=== PATIENT | female | born 1960 | race Caucasian/White ===

== ENCOUNTER → 2016-12-30 | Outpatient (CLI) | payer OTHER ==
[2016-12-30 08:30] LABS: ALANINE AMINOTRANSFERASE 31 U/L (9-52); ALBUMIN 4.2 g/dL (3.5-5.0); ALKALINE PHOSPHATASE 51 U/L (38-126); ASPARTATE AMINO TRANSFERASE 26 U/L (14-36); BILIRUBIN,DIRECT 0.2 mg/dL (0.0-0.4); BILIRUBIN,TOTAL 0.6 mg/dL (0.2-1.3); BLOOD UREA NITROGEN 15 mg/dL (7-20); CALCIUM 9.2 mg/dL (8.4-10.2); CARBON DIOXIDE 26 mmol/L (22-30); CREATININE RESULT 0.77 mg/dL (0.52-1.25); Direct HDL 59 mg/dL (>40); GLUCOSE 87 mg/dL (75-110); POTASSIUM 4.3 mmol/L (3.6-5.0); SODIUM 139.7 mmol/L (137-145); TOTAL PROTEIN 7.2 g/dL (6.3-8.2); TRIGLYCERIDES 145 mg/dL (<150)
[2016-12-30 08:33] LABS: ANION GAP 11 (5-19); CHLORIDE 103 mmol/L (98-107)
[2016-12-30 08:41] LABS: DIRECT LDL 105 mg/dL (<100)
== END ==
LOC: CCC 07:25
DX: E06.9 Thyroiditis, unspecified (principal); I10 Essential (primary) hypertension
CPT/HCPCS: 36415; 80053; 80061; 84443

== ENCOUNTER → 2017-07-18 | Outpatient (CLI) | payer OTHER ==
[2017-07-18 10:55] LABS: ABSOLUTE EOSINOPHILS # (AUTO) 0.2 10^3/uL (0.0-0.6); ABSOLUTE LYMPHOCYTES (AUTO) 1.5 10^3/uL (0.5-4.7); ABSOLUTE MONOCYTES (AUTO) 0.5 10^3/uL (0.1-1.4); ABSOLUTE NEUT (AUTO) 4.4 10^3/uL (1.7-8.2); BASOPHILS % (AUTO) 0.7 % (0-2); EOSINOPHILS % (AUTO) 3.4 % (0-6); HEMATOCRIT 38.8 % (36.0-47.0); HEMOGLOBIN 13.1 g/dL (12.0-15.5); LYMPHOCYTES % (AUTO) 22.5 % (13-45); MEAN CORPUSCULAR HEMOGLOBIN 30.8 pg (27.0-33.4); MEAN CORPUSCULAR HGB CONC 33.7 g/dL (32.0-36.0); MEAN CORPUSCULAR VOLUME 92 fl (80-97); MONOCYTES % (AUTO) 7.9 % (3-13); PLATELET COUNT 295 10^3/uL (150-450); RED BLOOD COUNT 4.25 10^6/uL (3.72-5.28); RED CELL DISTRIBUTION WIDTH 13.3 % (11.5-14.0); SEGMENTED NEUTROPHILS % (AUTO) 65.5 % (42-78); TOTAL CELLS COUNTED % (AUTO) 100 %; WHITE BLOOD COUNT 6.7 10^3/uL (4.0-10.5)
[2017-07-18 11:23] LABS: ALANINE AMINOTRANSFERASE 39 U/L (9-52); ALBUMIN 4.4 g/dL (3.5-5.0); ALKALINE PHOSPHATASE 54 U/L (38-126); ANION GAP 8 (5-19); ASPARTATE AMINO TRANSFERASE 26 U/L (14-36); BILIRUBIN,DIRECT 0.1 mg/dL (0.0-0.4); BILIRUBIN,TOTAL 0.6 mg/dL (0.2-1.3); BLOOD UREA NITROGEN 17 mg/dL (7-20); CALCIUM 10.3 mg/dL (8.4-10.2); CARBON DIOXIDE 34 mmol/L (22-30); CHLORIDE 100 mmol/L (98-107); GLUCOSE 101 mg/dL (75-110); MAGNESIUM 1.8 mg/dL (1.6-2.3); POTASSIUM 4.6 mmol/L (3.6-5.0); SODIUM 142.1 mmol/L (137-145); TOTAL PROTEIN 7.2 g/dL (6.3-8.2)
--- NOTE | 2017-07-18 12:10 | RADIOLOGY REPORT (SQ) ---
EXAM DESCRIPTION: CHEST PA/LATERAL COMPLETED DATE/TIME: 07/18/2017 10:54 am REASON FOR STUDY: COUGH COMPARISON: None. EXAM PARAMETERS: NUMBER OF VIEWS: two views TECHNIQUE: Digital Frontal and Lateral radiographic views of the chest acquired. RADIATION DOSE: NA LIMITATIONS: none FINDINGS: LUNGS AND PLEURA: No opacities, masses or pneumothorax. No pleural effusion. MEDIASTINUM AND HILAR STRUCTURES: No masses or contour abnormalities. HEART AND VASCULAR STRUCTURES: Heart normal size. No evidence for failure. BONES: No acute findings. HARDWARE: None in the chest. OTHER: No other significant finding. IMPRESSION: NO SIGNIFICANT RADIOGRAPHIC FINDING IN THE CHEST. TECHNICAL DOCUMENTATION: JOB ID: [id number] [employer]- All Rights Reserved
== END ==
LOC: CCC 10:18
DX: R05 Cough (principal); I10 Essential (primary) hypertension; E03.9 Hypothyroidism, unspecified
CPT/HCPCS: 36415; 71046; 80053; 82607; 82746; 83036; 83735; 84443; 85025

== ENCOUNTER → 2017-08-15 | Outpatient (CLI) | payer OTHER ==
--- NOTE | 2017-08-15 17:46 | RADIOLOGY REPORT (SQ) ---
EXAM DESCRIPTION: MRI HEAD COMBO COMPLETED DATE/TIME: 08/15/2017 4:57 pm REASON FOR STUDY: R25.1 TREMOR, UNSPECIFIED R25.1 TREMOR, UNSPECIFIED COMPARISON: None. TECHNIQUE: Multiplanar imaging includes noncontrasted T1, T2, FLAIR, diffusion with ADC map and post gadolinium contrast T1 sequences. Images stored on PACS. Additional thin section axial and coronal T 2, axial and coronal T1 precontrast and axial and coronal T1 post contrasted images through the poste rior fossa to include the brainstem and cerebellopontine angles. CONTRAST TYPE AND DOSE: 15 mL Multihance. RENAL FUNCTION: GFR > 60. LIMITATIONS: None. FINDINGS: ANATOMY: No developmental anomalies. Normal vascular flow voids. Pituitary fossa normal. CSF SPACES: Normal in size and contour. No hemorrhage. CEREBRUM: Sulci and gyri normal in size and contour. Spotty increased bifrontal and biparietal subco rtical and deep white matter signal on FLAIR imaging, likely spotty chronic small vessel ischemic venkatesh nge or gliosis along perivascular spaces. No evidence of hemorrhage, mass, or extraaxial fluid colle ction. No abnormal enhancement post contrast. POSTERIOR FOSSA: There is decreased cons acuity of the substantia nigra in the brainstem. This can c orrelate with parkinsonism. No acute hemorrhage. No edema, masses, or mass effect. Internal auditory canals, cerebellopontine angles, mastoids normal. No enhancing lesions. No abnormal enhancement post contrast. DIFFUSION IMAGING: Negative for acute or subacute infarction. ORBITS: No masses. Globes normal. PARANASAL SINUSES: No fluid levels. Mucosa normal. OTHER: No other significant finding. IMPRESSION: Decreased cons acuity of the substantia nigra on the axial T2 and FLAIR images through t he brainstem, can correlate with history of parkinsonism. Spotty chronic appearing foci of increased FLAIR/ T2 signal in the hemispheric white matter, likely m inimal small vessel ischemic change or minimal gliosis along perivascular spaces. No abnormal brain parenchymal masses or enhancement. Internal auditory canals/ inner ear structures are unremarkable. EVIDENCE OF ACUTE STROKE: NO. TECHNICAL DOCUMENTATION: JOB ID: [id number]- All Rights Reserved Reading location - IP/workstation name: [email or web address]
== END ==
LOC: RAD 15:47
DX: R25.1 Tremor, unspecified (principal)
CPT/HCPCS: 70553; A9576

== ENCOUNTER → 2017-09-07 | Outpatient (CLI) | payer OTHER ==
[~2017-09-07] MED LIST: ALBUTEROL SULFATE 0.083% NEB 2.5 MG/3 ML AMPUL NEB ONE
--- NOTE | 2017-09-11 09:38 | PULMONARY FUNCTION TEST ---
DATE OF SERVICE: 09/07/2017 THE VITAL CAPACITY IS SLIGHTLY DECREASED. THE EXPIRATORY FLOW RATES ARE MODERATELY DECREASED. THE FEV1/VC IS 70%, PREDICTED: 84% AFTER BRONCHODILATOR, EXPIRATORY FLOW RATES SHOW NO SIGNIFICANT CHANGE. IMPRESSION: GOOD PATIENT EFFORT. MODERATE OBSTRUCTIVE DEFECT. CC: DHARMESH ARCE MD > HILARIA
== END ==
LOC: RT 10:12
PROVIDERS: ATTEND Internal Medicine
DX: R05 Cough (principal)
CPT/HCPCS: 94060

== ENCOUNTER → 2017-09-12 | Outpatient (CLI) | payer OTHER ==
--- NOTE | 2017-09-12 10:20 | RADIOLOGY REPORT (SQ) ---
EXAM DESCRIPTION: COOKIE SWALLOW COMPLETED DATE/TIME: 09/12/2017 9:38 am REASON FOR STUDY: DYSPHAGIA (R13.10) food in the a pharynx causing injury, sequela T17.228S R13.10 DYSPHAGIA, UNSPECIFIED COMPARISON: None. TECHNIQUE: Videofluoroscopic swallowing examination was performed in conjunction with speech patholo gy. Videofluoroscopic imaging was obtained and reviewed and these are the findings: RADIATION DOSE: Total fluoroscopy time: 1 minutes 4 seconds 1 fluoroscopy image saved to PACS. LIMITATIONS: None FINDINGS: The patient was brought into the fluoro room and placed upright on a modified barium swall ow chair. The patient was then given multiple consistencies mixed with barium to swallow under live fluoroscopic video guidance. According to the Speech Pathologist there was no laryngeal penetration or tracheal aspiration. Normal oral and pharyngeal transit time was observed. No significant post s wallow residual was seen. Please see speech pathology report for further details and recommendations . IMPRESSION: NO EVIDENCE OF LARYNGEAL PENETRATION OR TRACHEAL ASPIRATION.PLEASE SEE SPEECH PATHOLOGIS T REPORT FOR OTHER FINDINGS AND RECOMMENDATIONS. COMMENT: Quality ID [id number]: Final reports for procedures using fluoroscopy that document radiation exp osure indices, or exposure time and number of fluorographic images (if radiation exposure indices are not available) TECHNICAL DOCUMENTATION: JOB ID: [id number] [employer]- All Rights Reserved Reading location - IP/workstation name: [email or web address]
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
== END ==
LOC: RAD 07:57
DX: R13.10 Dysphagia, unspecified (principal)
CPT/HCPCS: 74230; 92611; G8996; G8997; G8998

== ENCOUNTER 2017-09-24 20:13 | Emergency (ER) | payer OTHER ==
[2017-09-24] MEDS ORDERED: ACETAMINOPHEN 325 MG TABLET PO ONE (21:06)
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
[2017-09-24] MEDS ORDERED: CYCLOBENZAPRINE HCL 10 MG TABLET PO ONE (22:14)
== END 2017-09-24 22:37 | disposition home or self-care (01) ==
LOC: ER 20:13
DX: M54.2 Cervicalgia (principal); V49.50XA Passenger injured in collision with unspecified motor vehicles in traffic accident, initial encounter
CPT/HCPCS: 72050; 99284

== ENCOUNTER → 2017-12-25 | Outpatient (CLI) | payer OTHER ==
[2017-12-25 08:52] LABS: ABSOLUTE BASOPHILS # (AUTO) 0.1 10^3/uL (0.0-0.2); ABSOLUTE EOSINOPHILS # (AUTO) 0.2 10^3/uL (0.0-0.6); ABSOLUTE LYMPHOCYTES (AUTO) 1.9 10^3/uL (0.5-4.7); ABSOLUTE MONOCYTES (AUTO) 0.4 10^3/uL (0.1-1.4); ABSOLUTE NEUT (AUTO) 3.1 10^3/uL (1.7-8.2); BASOPHILS % (AUTO) 0.9 % (0-2); HEMATOCRIT 39.7 % (36.0-47.0); HEMOGLOBIN 13.5 g/dL (12.0-15.5); LYMPHOCYTES % (AUTO) 33.6 % (13-45); MEAN CORPUSCULAR HEMOGLOBIN 31.1 pg (27.0-33.4); MEAN CORPUSCULAR HGB CONC 33.9 g/dL (32.0-36.0); MEAN CORPUSCULAR VOLUME 92 fl (80-97); MONOCYTES % (AUTO) 7.4 % (3-13); PLATELET COUNT 282 10^3/uL (150-450); RED BLOOD COUNT 4.33 10^6/uL (3.72-5.28); RED CELL DISTRIBUTION WIDTH 13.2 % (11.5-14.0); SEGMENTED NEUTROPHILS % (AUTO) 55.1 % (42-78); TOTAL CELLS COUNTED % (AUTO) 100 %; WHITE BLOOD COUNT 5.6 10^3/uL (4.0-10.5)
[2017-12-25 09:25] LABS: ALANINE AMINOTRANSFERASE 45 U/L (9-52); ALBUMIN 4.2 g/dL (3.5-5.0); ALKALINE PHOSPHATASE 48 U/L (38-126); ANION GAP 10 (5-19); ASPARTATE AMINO TRANSFERASE 34 U/L (14-36); BILIRUBIN,DIRECT 0.4 mg/dL (0.0-0.4); BILIRUBIN,TOTAL 0.8 mg/dL (0.2-1.3); BLOOD UREA NITROGEN 20 mg/dL (7-20); CALCIUM 9.6 mg/dL (8.4-10.2); CARBON DIOXIDE 31 mmol/L (22-30); CHLORIDE 103 mmol/L (98-107); CHOLESTEROL 182.06 mg/dL (0-200); GLUCOSE 91 mg/dL (75-110); POTASSIUM 4.2 mmol/L (3.6-5.0); SODIUM 143.6 mmol/L (137-145); TOTAL PROTEIN 7.3 g/dL (6.3-8.2); TRIGLYCERIDES 112 mg/dL (<150)
[2017-12-25 09:35] LABS: DIRECT LDL 92 mg/dL (<100)
== END ==
LOC: OD 08:16
DX: I10 Essential (primary) hypertension (principal); E03.9 Hypothyroidism, unspecified
CPT/HCPCS: 36415; 80053; 80061; 83036; 84443; 85025

== ENCOUNTER 2018-11-10 20:37 | Emergency (ER) | payer OTHER ==
[2018-11-10] MEDS ORDERED: IBUPROFEN 600 MG TABLET PO ONE (22:09)
[2018-11-10] MEDS ORDERED: ONDANSETRON 4 MG TAB.RAPDIS PO ONE (22:10)
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
[2018-11-11 00:34] VITALS: BP 125/65
== END 2018-11-11 00:34 | disposition home or self-care (01) ==
LOC: ER 20:37
DX: S16.1XXA Strain of muscle, fascia and tendon at neck level, initial encounter (principal); S29.019A Strain of muscle and tendon of unspecified wall of thorax, initial encounter; M54.2 Cervicalgia; M54.9 Dorsalgia, unspecified; V87.7XXA Person injured in collision between other specified motor vehicles (traffic), initial encounter; I10 Essential (primary) hypertension
CPT/HCPCS: 99284; 72110; 72070; 72125; S0119

== ENCOUNTER 2019-07-16 17:30 | Observation (INO) | payer OTHER ==
[2019-07-16] MEDS ORDERED: NORMAL SALINE 1000 ML 1,000 ML IV ONE (17:50)
[2019-07-16] MEDS ORDERED: ACETAMINOPHEN 325 MG TABLET PO ONE (17:51)
--- NOTE | 2019-07-16 17:54 | ER Document Report ---
ED Medical Screen (RME) - General Chief Complaint: Headache >24 hrs old Stated Complaint: HEADACHE,LIGHTHEADED,BACK PAIN Time Seen by Provider: 07/16/19 17:45 Primary Care Provider: DESIRE BETANCUR FNP-C [Primary Care Provider] - Follow up as needed TRAVEL OUTSIDE OF THE [place] IN LAST 30 DAYS: No - HPI Notes: 07/16/19 17:51 51-year-old female with a medical history of hypertension, hypothyroidism and depression presents emergency room for complaints of generalized weakness, a dull soft headache, dizziness that started 3 days ago. Patient states she feels like she is going to "pass out". Denies that this is the worst headache of her life. States she has a history of migraines however she has not had a migraine in 5 years and this does not seem similar to her previous migraine. Patient denies any fevers or chills, chest pain shortness of breath, nausea vomiting or diarrhea. Has not been eating much but drinking without issues. Patient states she feels like there is a "post in my back". And states that her headache is a "just a dull soft ache". Denies any numbness or tingling down bilateral arms I have greeted and performed a rapid initial assessment of this patient. A comprehensive ED assessment and evaluation of the patient, analysis of test results and completion of medical decision making process will be conducted by an additional ED providers. PHYSICAL EXAMINATION: GENERAL: Well-appearing, well-nourished and in no acute distress. HEAD: Atraumatic, normocephalic. EYES: Pupils equal round extraocular movements intact, conjunctiva are normal. NECK: Normal range of motion CV: s1, s2 regular LUNGS: No respiratory distress NEUROLOGICAL: Normal speech, normal gait. SKIN: Warm, Dry, normal turgor, no rashes or lesions noted. 07/16/19 17:54 - Related Data Allergies/Adverse Reactions: primidone Allergy (Verified 11/10/18 22:08) Past Medical History - Past Medical History Cardiac Medical History: Reports: Hx Hypertension Renal/ Medical History: Denies: Hx Peritoneal Dialysis Psychiatric Medical History: Reports: Hx Depression Physical Exam - Vital signs Vitals: Temp Pulse Resp BP Pulse Ox 98.1 F 72 18 135/80 H 99 07/16/19 17:40 07/16/19 17:40 07/16/19 17:40 07/16/19 17:40 07/16/19 17:40 Course - Vital Signs Vital signs: Temp Pulse Resp BP Pulse Ox 98.1 F 72 18 135/80 H 99 07/16/19 17:40 07/16/19 17:40 07/16/19 17:40 07/16/19 17:40 07/16/19 17:40 Doctor's Discharge - Discharge Referrals: DESIRE BETANCUR, BROADCAST OPERATIONS TECHNICIAN-C [Primary Care Provider] - Follow up as needed
[2019-07-16 18:29] LABS: ABSOLUTE EOSINOPHILS # (AUTO) 0.1 10^3/uL (0.0-0.6); ABSOLUTE LYMPHOCYTES (AUTO) 2.7 10^3/uL (0.5-4.7); ABSOLUTE MONOCYTES (AUTO) 0.5 10^3/uL (0.1-1.4); BASOPHILS % (AUTO) 0.5 % (0-2); EOSINOPHILS % (AUTO) 1.6 % (0-6); HEMATOCRIT 40.5 % (36.0-47.0); HEMOGLOBIN 13.7 g/dL (12.0-15.5); LYMPHOCYTES % (AUTO) 37.2 % (13-45); MEAN CORPUSCULAR HEMOGLOBIN 31.5 pg (27.0-33.4); MEAN CORPUSCULAR HGB CONC 33.8 g/dL (32.0-36.0); MEAN CORPUSCULAR VOLUME 93 fl (80-97); MONOCYTES % (AUTO) 6.3 % (3-13); PLATELET COUNT 309 10^3/uL (150-450); RED BLOOD COUNT 4.34 10^6/uL (3.72-5.28); RED CELL DISTRIBUTION WIDTH 13.5 % (11.5-14.0); SEGMENTED NEUTROPHILS % (AUTO) 54.4 % (42-78); TOTAL CELLS COUNTED % (AUTO) 100 %; WHITE BLOOD COUNT 7.3 10^3/uL (4.0-10.5)
[2019-07-16 18:43] LABS: APPEARANCE,URINE CLEAR; BILIRUBIN,URINE NEGATIVE (NEGATIVE); COLOR,URINE YELLOW; GLUCOSE, URINE NEGATIVE (NEGATIVE); KETONES,URINE 20 mg/dL (NEGATIVE); LEUKOCYTE ESTERASE,URINE MODERATE (NEGATIVE); NITRITE,URINE NEGATIVE (NEGATIVE); PROTEIN,URINE NEGATIVE (NEGATIVE); URINE SPECIFIC GRAVITY 1.025
[2019-07-16 18:47] LABS: ALBUMIN 4.6 g/dL (3.5-5.0); ALKALINE PHOSPHATASE 59 U/L (38-126); ANION GAP 10 (5-19); ASPARTATE AMINO TRANSFERASE 26 U/L (14-36); BILIRUBIN,TOTAL 0.5 mg/dL (0.2-1.3); BLOOD UREA NITROGEN 25 mg/dL (7-20); CALCIUM 9.7 mg/dL (8.4-10.2); CARBON DIOXIDE 32 mmol/L (22-30); CHLORIDE 95 mmol/L (98-107); GLUCOSE 90 mg/dL (75-110); POTASSIUM 3.8 mmol/L (3.6-5.0); TOTAL PROTEIN 7.6 g/dL (6.3-8.2)
[2019-07-16 19:05] LABS: ERYTHROCYTE SEDIMENTATION RATE 30 mm/hr (0-30)
[2019-07-16 19:06] LABS: FREE T4 (FREE THYROXINE) 1.66 ng/dL (0.78-2.19)
--- NOTE | 2019-07-16 19:09 | ER Document Report ---
ED General - General Chief Complaint: Headache >24 hrs old Stated Complaint: HEADACHE,LIGHTHEADED,BACK PAIN Time Seen by Provider: 07/16/19 17:45 Primary Care Provider: DESIRE BETANCUR FNP-C [Primary Care Provider] - Follow up as needed Notes: [id number] female presents with a constellation of symptoms consisting of back pain between her shoulder blades "like a post was being pushed in" with lightheadedness cold sweats and nausea which occurred Monday night in bed and lasted about an hour. She is able to sleep and woke up the next day feeling very fatigued. Today she has residual back pain between her shoulder blades as well. No chest pain. Mild headache and lightheadedness. No current sweating. Had a stress test in 10 years. Takes thyroid medicine. Former smoker. Hypertension. She does have history of PEs in the 1980s in the setting of but has had no shortness of breath this time and this feels much different. No hemoptysis or leg swelling. TRAVEL OUTSIDE OF THE [place] IN LAST 30 DAYS: No - Related Data Allergies/Adverse Reactions: primidone Allergy (Verified 11/10/18 22:08) Past Medical History - Social History Smoking Status: Never Smoker Family History: Reviewed & Not Pertinent Patient has suicidal ideation: No Patient has homicidal ideation: No - Past Medical History Cardiac Medical History: Reports: Hx Hypertension Renal/ Medical History: Denies: Hx Peritoneal Dialysis Psychiatric Medical History: Reports: Hx Depression Review of Systems - Review of Systems Notes: REVIEW OF SYSTEMS GEN: Diaphoresis generalized weakness ENT: Denies sore throat, nasal discharge, ear pain EYES: Denies blurry vision, eye pain, discharge CV: Denies chest pain, palpitations, edema RESP: Denies cough, shortness of breath, wheezing GI: Denies abdominal pain, nausea, vomiting, diarrhea MSK: Back pain SKIN: Denies rash, skin lesions LYMPH: Denies swollen glands/lymph nodes NEURO: Denies headache, focal weakness or numbness, dizziness PSYCH: Denies depression, suicidal or homicidal ideation PHYSICAL EXAMINATION General: No acute distress, well-nourished Head: Atraumatic, normocephalic ENT: Mouth normal, oropharynx moist, no exudates or tonsillar enlargement Eyes: Conjunctiva normal, pupils equal, lids normal Neck: No JVD, supple, no guarding CVS: Normal rate, regular rhythm, no murmurs Resp: No resp distress, equal and normal breath sounds bilaterally GI: Nondistended, soft, no tenderness to palpation, no rebound or guarding Ext: No deformities, no edema, normal range of motion in upper and lower ext Back: No CVA or midline TTP Skin: No rash, warm Lymphatic: No lymphadeopathy noted Neuro: Awake, alert. Face symmetric. GCS 15. Physical Exam - Vital signs Vitals: Temp Pulse Resp BP Pulse Ox 98.1 F 72 18 135/80 H 99 07/16/19 17:40 07/16/19 17:40 07/16/19 17:40 07/16/19 17:40 07/16/19 17:40 Course - Re-evaluation Re-evalutation: 07/16/19 21:15 Patient presents with acute episode of interscapular back pain pallor clamminess and vomiting which is recurred once since then. She has remote smoking history and has hypertension. Concern for dissection versus ACS primarily. Neurologic exam normal here. 07/16/19 21:16 CTA for dissectionnegative EKGunrevealing Labs: Negative Symptoms did not recur in the ED but I am concerned for an atypical anginal type case and will need to be admitted for rule out. Troponin negative discussed with Shawn Hatch. - Vital Signs Vital signs: Temp Pulse Resp BP Pulse Ox 98.1 F 63 18 149/72 H 100 07/16/19 17:40 07/16/19 20:18 07/16/19 19:52 07/16/19 20:18 07/16/19 19:52 - Laboratory Result Diagrams: 07/16/19 18:16 07/16/19 18:16 Laboratory results interpreted by me: 07/16/19 07/16/19 18:16 18:16 Sodium 136.7 L Chloride 95 L Carbon Dioxide 32 H BUN 25 H Urine Ketones 20 H Urine Urobilinogen 2.0 H Ur Leukocyte Esterase MODERATE H - Diagnostic Test Radiology reviewed: Image reviewed, Reports reviewed - EKG Interpretation by Me EKG shows normal: Sinus rhythm Rate: Normal Rhythm: NSR - Cute ST or T wave changes Discharge - Discharge Clinical Impression: Upper back pain Condition: Good Disposition: ADMITTED OBSERVATION Admitting Provider: Holden (Hospitalist) Unit Admitted: Telemetry Referrals: GILBERT,STORMY, IT APPLICATION DEVELOPMENT MANAGER-C [Primary Care Provider] - Follow up as needed
[2019-07-16 19:20] LABS: THYROID STIMULATING HORMONE 3.1 uIU/mL (0.47-4.68)
--- NOTE | 2019-07-16 20:03 | RADIOLOGY REPORT (SQ) ---
EXAM DESCRIPTION: CTA CHEST COMPLETED DATE/TIME: 07/16/2019 7:28 pm REASON FOR STUDY: abd pain back pn htn- dissection COMPARISON: None. TECHNIQUE: CT scan of the chest performed using helical scanning technique with dynamic intravenous contrast injection. Images reviewed with lung, soft tissue and bone windows. Reconstructed coronal and sagittal MPR images reviewed. Additional 3 dimensional post-processing performed to develop Maximal Intensity Projection images (CO P). All images stored on PACS. All CT scanners at this facility use dose modulation, iterative reconstruction, and/or weight based d osing when appropriate to reduce radiation dose to as low as reasonably achievable (ALARA). [facility]: Dose Right [facility]: CareDose [facility]: Dose Right [facility]: Teradose 4D [facility]: [employer] CONTRAST TYPE AND DOSE: 99 mL Omnipaque 350- low osmolar. Contrast bolus adequate for pulmonary arteries and aorta. RENAL FUNCTION: BUN 25 creatinine 0.6 RADIATION DOSE: . LIMITATIONS: None. FINDINGS: LUNGS AND PLEURA: No masses, infiltrates, or pneumothorax. No pleural effusions or pleura l calcifications. AORTA AND GREAT VESSELS: No aneurysm. No dissection. HEART: No pericardial effusion. No significant coronary artery calcifications. PULMONARY ARTERIES: No emboli visualized in the main pulmonary arteries or the segmental branches. HILAR AND MEDIASTINAL STRUCTURES: No identified masses or abnormal nodes. HARDWARE: None in the chest. UPPER ABDOMEN: See separate report of the CT of the abdomen. THYROID AND OTHER SOFT TISSUES: No masses. No adenopathy. BONES: No acute or significant finding. 3D MIPS: Confirm above findings. OTHER: No other significant finding. IMPRESSION: There is no aortic aneurysm or dissection. There is no pulmonary embolus. There is no acute finding in the chest. COMMENT: Quality ID # [id number]: Final reports with documentation of one or more dose reduction techniques (e.g., Automated exposure control, adjustment of the mA and/or kV according to patient size, use of iterative reconstruction technique) TECHNICAL DOCUMENTATION: JOB ID: [id number] [employer]- All Rights Reserved Reading location - IP/workstation name: [email or web address]
--- NOTE | 2019-07-16 20:09 | RADIOLOGY REPORT (SQ) ---
EXAM DESCRIPTION: CTA ABDOMEN/PELVIS W WO COMPLETED DATE/TIME: 07/16/2019 7:28 pm REASON FOR STUDY: abd pain back pn htn- dissection COMPARISON: None. TECHNIQUE: CT scan of the abdominal aorta extending to the iliac bifurcation performed with intraven ous contrast using helical scanning technique with dynamic intravenous contrast injection. Images rev iewed with lung, soft tissue, and bone windows. Reconstructed coronal and sagittal MPR images reviewe d. All images stored on PACS. Advanced 3D imaging as volume rendering, MIPS, SSD performed? yes All CT scanners at this facility use dose modulation, iterative reconstruction, and/or weight based d osing when appropriate to reduce radiation dose to as low as reasonably achievable (ALARA). [facility]: Dose Right [facility]: CareDose [facility]: Dose Right [facility]: Teradose 4D [facility]: [employer] CONTRAST TYPE AND DOSE: contrast/concentration: Isovue 350.00 mg/ml; Total Contrast Delivered: 99.0 ml; Total Saline Delivered: 76.0 ml RENAL FUNCTION: BUN 25 creatinine 0.6 LIMITATIONS: None. FINDINGS: AORTA AND VESSELS: No aneurysm. No dissection. Renal arteries, SMA, celiac without stenosi s. LUNG BASES: See separate report for CTA of the chest. LIVER: Normal size. No masses or dilated ducts. SPLEEN: Normal size. No focal lesions. PANCREAS: No masses. No significant calcifications. No adjacent inflammation or peripancreatic fluid collections. Pancreatic duct not dilated. GALLBLADDER: No identified stones by CT criteria. No inflammatory changes to suggest cholecystitis. ADRENAL GLANDS: No significant masses or asymmetry. RIGHT KIDNEY AND URETER: No mass, calculi or urinary tract obstruction. LEFT KIDNEY AND URETER: No mass, calculi or urinary tract obstruction. RETROPERITONEUM: No retroperitoneal adenopathy, hemorrhage or masses. BOWEL AND PERITONEAL CAVITY: No masses or inflammatory changes. No free fluid or peritoneal masses. APPENDIX: Normal. PELVIS: Urinary bladder is normal. No abnormal pelvic mass or fluid collection. ABDOMINAL WALL: No masses. No hernias. BONY STRUCTURES: No significant or acute findings. 3-D IMAGING: Confirms the above findings. OTHER: No other significant finding. IMPRESSION: NO ABDOMINAL AORTIC ANEURYSM, DISSECTION OR SIGNIFICANT STENOSIS. NO SIGNIFICANT FINDING S IN THE ABDOMEN. TECHNICAL DOCUMENTATION: JOB ID: [id number] Quality ID # [id number]: Final reports with documentation of one or more dose reduction techniques (e.g., Au tomated exposure control, adjustment of the mA and/or kV according to patient size, use of iterative reconstruction technique) 2010 [employer]- All Rights Reserved Reading location - IP/workstation name: [email or web address]
[2019-07-16 22:17] LABS: CHOLESTEROL 173.46 mg/dL (0-200); TRIGLYCERIDES 157 mg/dL (<150)
[2019-07-16 22:27] LABS: DIRECT LDL 89 mg/dL (<100)
[2019-07-16 22:32] LABS: VLDL CHOLESTEROL 31.4 mg/dL (10-31)
[2019-07-16] MEDS: AMLODIPINE BESYLATE 5 MG TABLET PO SCH (22:49)
--- NOTE | 2019-07-17 02:53 | PDOC H&P ---
History of Present Illness Admission Date/PCP: 07/16/19 21:33 GOPAL MUNSON Patient complains of: Chest pain History of Present Illness: RIKKI WRIGHT is a 59 year old female with a past medical history of hypertension, hypothyroidism and depression. She presents 12 hours after the onset of an episode of 5 out of 5 retrosternal chest pain that radiated to the shoulder blades bilaterally associated with shortness of breath nausea without vomiting and diaphoresis. Pain occurred while at rest but resolved spontaneously without intervention. She denies previous episode she admits GERD and grief. Her work-up was unremarkable and she is referred to the hospitalist for admission. She otherwise denies recent stress test, change in medication regiment and is otherwise felt well. She is currently pain-free Past Medical History Cardiac Medical History: Reports: Hypertension Psychiatric Medical History: Reports: Depression Past Surgical History Past Surgical History: Reports: None Social History Information Source: Patient Lives with: Spouse/Significant other Smoking Status: Former Smoker Electronic Cigarette use?: No Number of Years Smokin Last Time Smoked: 1999 Frequency of Alcohol Use: Social Hx Recreational Drug Use: No Drugs: None - Advance Directive Resuscitation Status: Full Code Family History Family History: CAD, Hypertension, Malignancy - Multiple family members with colon cancer and ovarian cancer Parental Family History Reviewed: Yes Children Family History Reviewed: Yes Sibling(s) Family History Reviewed.: Yes Medication/Allergy Home Medications: Fluoxetine HCl [Prozac 20 mg Capsule] 20 mg PO DAILY 07/16/19 Hydrochlorothiazide [Hydrodiuril 25 mg Tablet] 25 mg PO DAILY 07/16/19 Levothyroxine Sodium 88 mcg PO Q6AM 07/16/19 Allergies/Adverse Reactions: primidone Allergy (Verified 11/10/18 22:08) Review of Systems Constitutional: ABSENT: chills, fever(s), headache(s), weight gain, weight loss Eyes: ABSENT: visual disturbances Ears: ABSENT: hearing changes Cardiovascular: ABSENT: chest pain, dyspnea on exertion, edema, orthropnea, palpitations Respiratory: ABSENT: cough, hemoptysis Gastrointestinal: ABSENT: abdominal pain, constipation, diarrhea, hematemesis, hematochezia, nausea, vomiting Genitourinary: ABSENT: dysuria, hematuria Musculoskeletal: ABSENT: joint swelling Integumentary: PRESENT: pruritus, other - Recent onset of [place]. ABSENT: rash, wounds Neurological: ABSENT: abnormal gait, abnormal speech, confusion, dizziness, focal weakness, syncope Psychiatric: ABSENT: anxiety, depression, homidical ideation, suicidal ideation Endocrine: ABSENT: cold intolerance, heat intolerance, polydipsia, polyuria Hematologic/Lymphatic: ABSENT: easy bleeding, easy bruising Physical Exam Vital Signs: Temp Pulse Resp BP Pulse Ox 98 F 63 20 109/49 L 95 07/17/19 01:55 07/17/19 01:55 07/17/19 01:55 07/17/19 01:55 07/17/19 01:55 Intake & Output 07/15/19 07/16/19 07/17/19 11:59 11:59 11:59 Intake Total 1000 Balance 1000 Weight 69.2 kg General appearance: PRESENT: no acute distress, cooperative, well-developed, well-nourished Head exam: PRESENT: atraumatic, normocephalic Eye exam: PRESENT: conjunctiva pink, EOMI, PERRLA. ABSENT: scleral icterus Ear exam: PRESENT: normal external ear exam Mouth exam: PRESENT: moist, tongue midline Neck exam: ABSENT: carotid bruit, JVD, lymphadenopathy, thyromegaly Adult Head Front/Back Image: 1 - Patch of excoriation with [place] area Respiratory exam: PRESENT: clear to auscultation isaac. ABSENT: accessory muscle use, rales, rhonchi, wheezes Cardiovascular exam: PRESENT: RRR. ABSENT: diastolic murmur, rubs, systolic murmur Pulses: PRESENT: normal dorsalis pedis pul Vascular exam: PRESENT: normal capillary refill GI/Abdominal exam: PRESENT: normal bowel sounds, soft. ABSENT: distended, guarding, mass, organolmegaly, rebound, tenderness Rectal exam: PRESENT: deferred Extremities exam: PRESENT: full ROM. ABSENT: calf tenderness, clubbing, pedal edema Neurological exam: PRESENT: alert, awake, oriented to person, oriented to place, oriented to time, oriented to situation, CN II-XII grossly intact. ABSENT: motor sensory deficit Psychiatric exam: PRESENT: appropriate affect, normal mood. ABSENT: homicidal ideation, suicidal ideation Skin exam: PRESENT: dry, intact, urticaria - About the right shoulder and right thigh without open ulcer or exudate or localized pain, warm. ABSENT: cyanosis, rash Results Laboratory Results: 07/16/19 18:16 07/16/19 18:16 07/16/19 07/16/19 07/16/19 18:16 18:16 18:16 WBC 7.3 RBC 4.34 Hgb 13.7 Hct 40.5 MCV 93 MCH 31.5 MCHC 33.8 RDW 13.5 Plt Count 309 Seg Neutrophils % 54.4 Sodium 136.7 L Potassium 3.8 Chloride 95 L Carbon Dioxide 32 H Anion Gap 10 BUN 25 H Creatinine 0.60 Est GFR ( Amer) > 60 Glucose 90 Calcium 9.7 Total Bilirubin 0.5 AST 26 Alkaline Phosphatase 59 Total Protein 7.6 Albumin 4.6 Triglycerides Cholesterol LDL Cholesterol Direct VLDL Cholesterol HDL Cholesterol TSH 3.10 Free T4 1.66 Urine Color Urine Appearance Urine pH Ur Specific [place] Urine Protein Urine Glucose (UA) Urine Ketones Urine Blood Urine Nitrite Ur Leukocyte Esterase Urine WBC (Auto) Urine RBC (Auto) 07/16/19 07/16/19 18:16 18:16 WBC RBC Hgb Hct MCV MCH MCHC RDW Plt Count Seg Neutrophils % Sodium Potassium Chloride Carbon Dioxide Anion Gap BUN Creatinine Est GFR ( Amer) Glucose Calcium Total Bilirubin AST Alkaline Phosphatase Total Protein Albumin Triglycerides 157 H Cholesterol 173.46 LDL Cholesterol Direct 89 VLDL Cholesterol 31.4 H HDL Cholesterol 54 TSH Free T4 Urine Color YELLOW Urine Appearance CLEAR Urine pH 6.0 Ur Specific [place] 1.025 Urine Protein NEGATIVE Urine Glucose (UA) NEGATIVE Urine Ketones 20 H Urine Blood NEGATIVE Urine Nitrite NEGATIVE Ur Leukocyte Esterase MODERATE H Urine WBC (Auto) 20 Urine RBC (Auto) 4 07/16/19 18:16 Troponin I < 0.012 Impressions: Abdomen/Pelvis CTA 07/16/19 18:57 IMPRESSION: NO ABDOMINAL AORTIC ANEURYSM, DISSECTION OR SIGNIFICANT STENOSIS. NO SIGNIFICANT FINDINGS IN THE ABDOMEN. Chest/Abdomen CTA 07/16/19 18:57 IMPRESSION: There is no aortic aneurysm or dissection. There is no pulmonary embolus. There is no acute finding in the chest. Assessment and Plan - Diagnosis (1) Chest pain Is this a current diagnosis for this admission?: Yes Plan: Esophageal spasm versus CAD, atypical chest pain though the patient's pain is atypical there are multiple risk factors for coronary artery disease and subsequently will observe and evaluation of acute coronary syndrome versus coronary artery disease with anginal equivalents. Cardiac monitoring blood pressure Q6 hours ,TSH, lipid profile, serial cardiac enzymes and cardiac stress test (2) Hypertension Is this a current diagnosis for this admission?: Yes Plan: Norvasc (3) GERD (gastroesophageal reflux disease) Is this a current diagnosis for this admission?: Yes Plan: Trial of Prevacid, education (4) Acute urticaria Is this a current diagnosis for this admission?: Yes Plan: Likely allergic or medication related suggest discontinuation of NSAIDs, follow- up outpatients primary care - Time Time Spent with patient: 25-34 minutes - Inpatient Certification Medical Necessity: Need Close Monitoring Due to Risk of Patient Decompensation
[2019-07-17] MEDS ORDERED: FLUOXETINE HCL 20 MG CAPSULE PO SCH (10:00)
[2019-07-17] MEDS: AMLODIPINE BESYLATE 5 MG TABLET PO SCH (10:56)
--- NOTE | 2019-07-17 14:26 | EKG REPORT ---
SEVERITY:- NORMAL ECG - SINUS RHYTHM : Confirmed by: Anaya Soriano 17-Jul-2019 14:24:54
[2019-07-17] MEDS ORDERED: REGADENOSON INJ 0.4 MG/5 ML DISP.SYRIN IV ONE (14:51)
[2019-07-17 17:51] VITALS: BP 142/75
--- NOTE | 2019-07-17 19:08 | DRAGON STRESS TEST REPORT ---
Intravenous Lexiscan Cardiolite stress test using single photon emmision computerized tomography. Date of procedure: 07/17/2019. Ordering Provider: Dr. Lan Hatch.Patient's status: In Patient. Indication: Chest pain. Coronary risk factors: Age, and family history of coronary artery disease. Resting EKG: Sinus Rhythm. Within Normal Limits. Stress EKG: No changes of ischemia. The patient had no chest pain or discomfort, and there were no arrhythmias seen. Reason for termination: Protocol. Conclusions: Normal EKG and hemodynamic response to IV Lexiscan. Nuclear data: At rest the patient was given 10.81 millicuries of technetium 99m sestamibi injected intravenously. As per protocol rest non gated SPECT images were obtained. Subsequently the patient was given intravenous Lexiscan at a dose of 0.4 mg in 5 mL intravenously, followed by flush with normal saline. Subsequently the stress dose of 32.2 millicuries of technetium 99m sestamibi was injected intravenously. As per protocol stress gated images were obtained. Nuclear interpretation: Review of images showed that all segments of the myocardium had normal perfusion at rest, and normal perfusion post stress with IV Lexiscan. All segments of the myocardium had normal motion, contraction, and thickening by gated study. T. I D. ratio was normal at 1.05. There is no transient ischemic dilatation of the left ventricle. Computer read rest, and stress left ventricular ejection fraction were 62 %, and 64 %, respectively. Conclusion: 1. There is no scintigraphic evidence of Lexiscan induced myocardial ischemia. 2. There is no scintigraphic evidence of myocardial infarction/scar. Recommendations: Aggressive risk factor modification, and treating the underlying co- morbidities. MTDD
[2019-07-18] MEDS ORDERED: LEVOTHYROXINE SODIUM 0.088 MG TABLET PO SCH (06:00)
--- NOTE | 2019-07-20 18:05 | PDOC DISCHARGE SUMMARY ---
Impression - Admit/DC Date/PCP Admission Date/Primary Care Provider: 07/16/19 21:33 GOPAL MUNSON Discharge Date: 07/17/19 - Additional Information Resuscitation Status: Full Code Discharge Diet: As Tolerated Referrals: DESIRE BETANCUR FNP-C [Primary Care Provider] - 07/26/19 11:00 am Prescriptions: Amlodipine Besylate [Norvasc 5 mg Tablet] 5 mg PO DAILY 30 Days #30 tablet Home Medications: Fluoxetine HCl [Prozac 20 mg Capsule] 20 mg PO DAILY 07/16/19 Levothyroxine Sodium 88 mcg PO Q6AM 07/16/19 Amlodipine Besylate [Norvasc 5 mg Tablet] 5 mg PO DAILY 30 Days #30 tablet 07/17/19 History of Present Illiness History of Present Illness: RIKKI WRIGHT is a 59 year old female with a past medical history of hypertension, hypothyroidism and depression. She presents 12 hours after the onset of an episode of 5 out of 5 retrosternal chest pain that radiated to the shoulder blades bilaterally associated with shortness of breath nausea without vomiting and diaphoresis. Pain occurred while at rest but resolved spontaneously without intervention. She denies previous episode she admits GERD and grief. Her work-up was unremarkable and she is referred to the hospitalist for admission. She otherwise denies recent stress test, change in medication regiment and is otherwise felt well. She is currently pain-free Hospital Course Hospital Course: (1) Chest pain Resolved. Noncardiac. Most likely due to esophageal spasm or musculoskeletal chest pain. Given results of patient was admitted for cardiac stress test. EKG no acute changes. Troponin is negative x3. Nuclear stress test negative. TSH WNL. Lipid panel WNL. (2) Hypertension Euvolemic. Normotensive. Was a started on Norvasc. Discharged on Norvasc. Advised to follow-up with PCP. (3) GERD (gastroesophageal reflux disease) Started on H2 blockers. (4) Acute urticaria Resolved. All vitals are stable. Likely allergic or medication related suggest discontinuation of NSAIDs. Follow-up outpatients primary care Physical Exam Vital Signs: Temp Pulse Resp BP Pulse Ox 97.8 F 62 20 142/75 H 98 07/17/19 17:48 07/17/19 17:48 07/17/19 17:48 07/17/19 17:48 07/17/19 17:48 General appearance: PRESENT: no acute distress, well-developed, well-nourished Head exam: PRESENT: atraumatic, normocephalic Eye exam: PRESENT: conjunctiva pink, EOMI, PERRLA. ABSENT: scleral icterus Ear exam: PRESENT: normal external ear exam Mouth exam: PRESENT: moist, tongue midline Neck exam: ABSENT: carotid bruit, JVD, lymphadenopathy, thyromegaly Respiratory exam: PRESENT: clear to auscultation isaac. ABSENT: rales, rhonchi, wheezes Cardiovascular exam: PRESENT: RRR. ABSENT: diastolic murmur, rubs, systolic murmur Pulses: PRESENT: normal dorsalis pedis pul Vascular exam: PRESENT: normal capillary refill GI/Abdominal exam: PRESENT: normal bowel sounds, soft. ABSENT: distended, guarding, mass, organolmegaly, rebound, tenderness Rectal exam: PRESENT: deferred Extremities exam: PRESENT: full ROM. ABSENT: calf tenderness, clubbing, pedal edema Neurological exam: PRESENT: alert, awake, oriented to person, oriented to place, oriented to time, oriented to situation, CN II-XII grossly intact. ABSENT: motor sensory deficit Psychiatric exam: PRESENT: appropriate affect, normal mood. ABSENT: homicidal ideation, suicidal ideation Skin exam: PRESENT: dry, intact, warm. ABSENT: cyanosis, rash Results Laboratory Results: WBC 7.3 10^3/uL (4.0-10.5) 07/16/19 18:16 RBC 4.34 10^6/uL (3.72-5.28) 07/16/19 18:16 Hgb 13.7 g/dL (12.0-15.5) 07/16/19 18:16 Hct 40.5 % (36.0-47.0) 07/16/19 18:16 MCV 93 fl (80-97) 07/16/19 18:16 MCH 31.5 pg (27.0-33.4) 07/16/19 18:16 MCHC 33.8 g/dL (32.0-36.0) 07/16/19 18:16 RDW 13.5 % (11.5-14.0) 07/16/19 18:16 Plt Count 309 10^3/uL (150-450) 07/16/19 18:16 Lymph % (Auto) 37.2 % (13-45) 07/16/19 18:16 [place] % (Auto) 6.3 % (3-13) 07/16/19 18:16 Eos % (Auto) 1.6 % (0-6) 07/16/19 18:16 Baso % (Auto) 0.5 % (0-2) 07/16/19 18:16 Absolute Neuts (auto) 4.0 10^3/uL (1.7-8.2) 07/16/19 18:16 Absolute Lymphs (auto) 2.7 10^3/uL (0.5-4.7) 07/16/19 18:16 Absolute Monos (auto) 0.5 10^3/uL (0.1-1.4) 07/16/19 18:16 Absolute Eos (auto) 0.1 10^3/uL (0.0-0.6) 07/16/19 18:16 Absolute Basos (auto) 0.0 10^3/uL (0.0-0.2) 07/16/19 18:16 Seg Neutrophils % 54.4 % (42-78) 07/16/19 18:16 ESR 30 mm/hr (0-30) 07/16/19 18:16 Sodium 136.7 mmol/L (137-145) L 07/16/19 18:16 Potassium 3.8 mmol/L (3.6-5.0) 07/16/19 18:16 Chloride 95 mmol/L (98-107) L 07/16/19 18:16 Carbon Dioxide 32 mmol/L (22-30) H 07/16/19 18:16 Anion Gap 10 (5-19) 07/16/19 18:16 BUN 25 mg/dL (7-20) H 07/16/19 18:16 Creatinine 0.60 mg/dL (0.52-1.25) 07/16/19 18:16 Est GFR ( Amer) > 60 (>60) 07/16/19 18:16 Est GFR (MDRD) Non-Af > 60 (>60) 07/16/19 18:16 Glucose 90 mg/dL (75-110) 07/16/19 18:16 POC Glucose 86 mg/dL (70-110) 07/16/19 18:07 Calcium 9.7 mg/dL (8.4-10.2) 07/16/19 18:16 Total Bilirubin 0.5 mg/dL (0.2-1.3) 07/16/19 18:16 Direct Bilirubin 0.0 mg/dL (0.0-0.4) 07/16/19 18:16 Neonat Total Bilirubin Not Reportable 07/16/19 18:16 Neonat Direct Bilirubin Not Reportable 07/16/19 18:16 Neonat Indirect Bili Not Reportable 07/16/19 18:16 AST 26 U/L (14-36) 07/16/19 18:16 ALT 18 U/L (<35) 07/16/19 18:16 Alkaline Phosphatase 59 U/L (38-126) 07/16/19 18:16 Troponin I < 0.012 ng/mL 07/16/19 18:16 Total Protein 7.6 g/dL (6.3-8.2) 07/16/19 18:16 Albumin 4.6 g/dL (3.5-5.0) 07/16/19 18:16 Triglycerides 157 mg/dL (<150) H 07/16/19 18:16 Cholesterol 173.46 mg/dL (0-200) 07/16/19 18:16 LDL Cholesterol Direct 89 mg/dL (<100) 07/16/19 18:16 VLDL Cholesterol 31.4 mg/dL (10-31) H 07/16/19 18:16 HDL Cholesterol 54 mg/dL (>40) 07/16/19 18:16 TSH 3.10 uIU/mL (0.47-4.68) 07/16/19 18:16 Free T4 1.66 ng/dL (0.78-2.19) 07/16/19 18:16 Urine Color YELLOW 07/16/19 18:16 Urine Appearance CLEAR 07/16/19 18:16 Urine pH 6.0 (5.0-9.0) 07/16/19 18:16 Ur Specific [place] 1.025 07/16/19 18:16 Urine Protein NEGATIVE mg/dL (NEGATIVE) 07/16/19 18:16 Urine Glucose (UA) NEGATIVE mg/dL (NEGATIVE) 07/16/19 18:16 Urine Ketones 20 mg/dL (NEGATIVE) H 07/16/19 18:16 Urine Blood NEGATIVE (NEGATIVE) 07/16/19 18:16 Urine Nitrite NEGATIVE (NEGATIVE) 07/16/19 18:16 Urine Bilirubin NEGATIVE (NEGATIVE) 07/16/19 18:16 Urine Urobilinogen 2.0 mg/dL (<2.0) H 07/16/19 18:16 Ur Leukocyte Esterase MODERATE (NEGATIVE) H 07/16/19 18:16 Urine WBC (Auto) 20 /HPF 07/16/19 18:16 Urine RBC (Auto) 4 /HPF 07/16/19 18:16 U Hyaline Cast (Auto) 1 /LPF 07/16/19 18:16 Squamous Epi Cells Auto 1 /HPF 07/16/19 18:16 Urine Mucus (Auto) RARE /LPF 07/16/19 18:16 Urine Ascorbic Acid NEGATIVE (NEGATIVE) 07/16/19 18:16 07/16/19 18:16 Troponin I < 0.012 Impressions: Abdomen/Pelvis CTA 07/16/19 18:57 IMPRESSION: NO ABDOMINAL AORTIC ANEURYSM, DISSECTION OR SIGNIFICANT STENOSIS. NO SIGNIFICANT FINDINGS IN THE ABDOMEN. Chest/Abdomen CTA 07/16/19 18:57 IMPRESSION: There is no aortic aneurysm or dissection. There is no pulmonary embolus. There is no acute finding in the chest. Stroke Is this a Stroke Patient?: No Acute Heart Failure - Is this a Heart Failure Patient?: No
== END 2019-07-17 18:04 | disposition home or self-care (01) ==
LOC: ER 17:30 → UNDOADMOB 21:19 → EH 21:19 → 3W 07-17 01:26
PROVIDERS: ADMIT Internal Medicine; ATTEND Internal Medicine
DX: R07.89 Other chest pain (principal); I10 Essential (primary) hypertension; E03.9 Hypothyroidism, unspecified; F32.9 Major depressive disorder, single episode, unspecified; K21.9 Gastro-esophageal reflux disease without esophagitis; L50.8 Other urticaria; M54.9 Dorsalgia, unspecified; R42 Dizziness and giddiness; R61 Generalized hyperhidrosis; R51 Headache; R11.2 Nausea with vomiting, unspecified; Z79.899 Other long term (current) drug therapy; Z87.891 Personal history of nicotine dependence; Z82.49 Family history of ischemic heart disease and other diseases of the circulatory system; Z86.711 Personal history of pulmonary embolism
CPT/HCPCS: 93005; 99285; 96360; 96361; 36415; 84439; 82962; 84443; 85025; 85652; 80053; 81001; 84484; 80061; 93017; 78452; 71275; 74174; 93010; A9500; J2785; J3490; J7030; Q9969

== ENCOUNTER → 2019-08-06 | Outpatient (CLI) | payer OTHER ==
--- NOTE | 2019-08-06 13:30 | WOMENS IMAGING REPORT ---
EXAM DESCRIPTION: BILAT SCREENING MAMMO W/CAD COMPLETED DATE/TIME: 08/06/2019 10:00 am REASON FOR STUDY: Z12.31 SCREENING MAMMO Z12.31 [id number] SCREEN MAMMOGRAM FOR MALIGNANT NEOPLASM OF B RE COMPARISON: 04/08/2016 EXAM PARAMETERS: Standard craniocaudal and mediolateral oblique views of each breast recorded using digital acquisition. Read with the assistance of CAD. .[facility] - [employer] Version 9.2 LIMITATIONS: None. FINDINGS: No suspicious masses, suspicious calcifications or architectural distortion. No areas of c oncern. IMPRESSION: Negative MAMMOGRAM. BIRADS 1 BREAST DENSITY: c. The breasts are heterogeneously dense, which may obscure small masses. BIRAD: ASSESSMENT: 1 NEGATIVE RECOMMENDATION: ROUTINE SCREENING COMMENT: The patient has been notified of the results by letter per MQSA requirements. Additional no tification policies are in place for contacting patient with suspicious or incomplete findings. Quality ID #225: The [employer] recommends an annual screening mammogram for women aged 40 years or over. This facility utilizes a reminder system to ensure that all patients receive reminder letters, and/or direct phone calls for appointments. This includes reminders for routine scr eening mammograms, diagnostic mammograms, or other Breast Imaging Interventions when appropriate. Th is patient will be placed in the appropriate reminder system. TECHNICAL DOCUMENTATION: FINDING NUMBER: (1) ASSESSMENT: (1) JOB ID: [id number] 2010 [employer]- All Rights Reserved Reading location - IP/workstation name: [email or web address]
== END ==
LOC: WI 10:10
PROVIDERS: ATTEND Family Medicine
DX: Z12.31 Encounter for screening mammogram for malignant neoplasm of breast (principal)
CPT/HCPCS: 77067

== ENCOUNTER 2019-08-23 06:53 | Day surgery (SDC) | payer OTHER ==
[2019-08-23] MEDS ORDERED: PROPOFOL INJ 200 MG/20 ML VIAL IV ONE ×2 (07:49→09:07)
[2019-08-23 09:48] VITALS: BP 129/61
--- NOTE | 2019-08-23 11:37 | Operative Report ---
Operative Report DATE OF SURGERY: 08/23/19 Operative Report: The risk, benefits and alternatives of the procedure including the risk of bleeding, perforation requiring surgery have been explained to the patient in detail and informed consent has been obtained. Patient is taken back to the endoscopy suite and placed in the left, lateral decubital position. Timeout was called. Propofol medication is administered. Rectal examination is done which did not reveal any masses, tears or fissures. An Olympus videoscope was introduced into the patient's rectum. Scope was then carefully advanced all the way to the cecum. Cecum was identified by the usual anatomical landmarks including the ileocecal valve as well as the appendiceal office. Photodocumentation is obtained. Scope was then sequentially pulled back via the various segments of the colon including the ascending colon, pancreatic, transverse colon, splenic flexure, descending colon and finally into the rectosigmoid portions of the colon. Retroflexion maneuvers performed. PREOPERATIVE DIAGNOSIS: Colorectal cancer screening POSTOPERATIVE DIAGNOSIS: Normal screening colonoscopy OPERATION: Diagnostic colonoscopy SURGEON: BANDAR RYAN ANESTHESIA: LMAC TISSUE REMOVED OR ALTERED: None. COMPLICATIONS: None. ESTIMATED BLOOD LOSS: None. INTRAOPERATIVE FINDINGS: Incidental finding of diverticulosis and internal hemorrhoids PROCEDURE: Patient tolerated the procedure well. No immediate postprocedure complications are noted. Patient is discharged in good condition. Discharge date 08/23/2019. Discharge diet: Regular. Discharge activity: Regular. 2 to 3-week follow-up to discuss findings. Patient is instructed call the office or proceed to the emergency room should there be any further problems or questions. 10-year surveillance colonoscopy.
== END 2019-08-23 09:45 | disposition home or self-care (01) ==
LOC: END 06:53
PROVIDERS: ATTEND Internal Medicine Gastroenterology
DX: Z12.11 Encounter for screening for malignant neoplasm of colon (principal); K57.30 Diverticulosis of large intestine without perforation or abscess without bleeding; K64.8 Other hemorrhoids; E03.9 Hypothyroidism, unspecified; I10 Essential (primary) hypertension; R01.1 Cardiac murmur, unspecified; Z79.899 Other long term (current) drug therapy; Z88.8 Allergy status to other drugs, medicaments and biological substances; Z87.891 Personal history of nicotine dependence
CPT/HCPCS: 45378; 00812; J2704; 812